=== PATIENT | female | born 1965 | race Caucasian/White ===

== ENCOUNTER 2017-12-11 13:14 | Emergency (ER) | payer MEDICARE, MEDICAID ==
[~2017-12-11 13:14] MED LIST changes: +CITA-139 PO; -CITA-145 PO; -NIC10R INH; -OXYGENHOME INH
--- NOTE | 2017-12-11 13:18 | ER Report ---
History and Physical Time Seen By MD: 13:17 HPI/ROS CHIEF COMPLAINT: Altered mental status HISTORY OF PRESENT ILLNESS: This is a 52-year-old female who presents to the emergency department via EMS for altered mental status. According to EMS the patient had a friend who has been checking on her today at around 12:00 she checked on her and noted that she was in and out of consciousness and not acting quite appropriate and was complaining of esophageal, chest and abdominal pain. Upon arrival EMS stated that she was on a mattress that was on the ground she was moving around not sitting still, the patient does drink alcohol daily however she has not had anything to drink today. EMS did give her 5mg of Valium IV and 4 mg IV Zofran. She has had hematemesis unsure how many episodes. Patient arrives groaning and grunting. Patient also states that she was trying to hurt herself by drinking last night however she states she was "not trying to kill herself". She is alert when prompted, responsive and answering questions. Patient has a very strong odor of EtOH. Patient does usually drink 1 pint of vodka daily, she denies drugs. Patient denies rashes, headaches, visual changes or urinary concerns. REVIEW OF SYSTEMS: Constitutional: No fever, no chills. Eyes: No discharge. ENT: No sore throat. Cardiovascular: As above. Respiratory: As above. Gastrointestinal: As above. Genitourinary: No hematuria. Musculoskeletal: No back pain. Skin: No rashes. Neurological: As above. Allergies: Coded Allergies: tomato (Verified Allergy, Intermediate, Rash, 12/11/17) Home Meds Discontinued Scripts Tramadol Hcl (TRAMADOL HCL) 50 Mg Tablet, 1 TAB PO Q6H Y for PAIN, #15 MG TAKE ONE TO TWO TABLETS BY MOUTH EVERY FOUR TO SIX HOURS NEEDED Prov:RL JURADO DO 07/14/17 Cephalexin 500 Mg Tab (KEFLEX 500 MG TAB) 500 Mg Tablet, 500 MG PO TID for infection, #20 TAB Prov:RL JURADO DO 07/14/17 Past Medical/Surgical History Patient has a past medical and surgical history of head injuries, wears glasses , alcohol abuse, suicide attempt, cholecystectomy, hysterectomy. Reviewed Nurses Notes: Yes Smoking Status: Current: Every Day Smoker Hx Substance Use Disorder: No Hx Alcohol Use: Yes (occ, 1 PINT WEEKLY) Constitutional Vital Sign - Last 24 Hours 12/11/17 12/11/17 12/11/17 12/11/17 13:16 13:17 13:30 13:32 Temp 98.8 Pulse 101 Resp 22 B/P (MAP) 112/94 112/94 (100) 105/81 (89) Pulse Ox 99 O2 Delivery Non-Rebreather O2 Flow Rate 10.0 12/11/17 12/11/17 12/11/17 12/11/17 13:44 13:45 14:00 14:14 Pulse 92 Resp 23 31 B/P (MAP) 110/85 (93) 110/87 (95) Pulse Ox 98 12/11/17 12/11/17 12/11/17 12/11/17 14:15 14:30 15:00 15:05 Pulse 81 Resp 15 B/P (MAP) 111/79 (90) 118/81 (93) 96/67 (77) Pulse Ox 98 12/11/17 12/11/17 12/11/17 12/11/17 15:15 15:30 15:35 15:45 Pulse 82 B/P (MAP) 86/58 (67) 97/69 (78) 116/84 (95) 12/11/17 12/11/17 12/11/17 16:04 16:05 16:15 Pulse 85 Resp 20 B/P (MAP) 121/80 (94) 120/93 (102) Pulse Ox 100 Intake and Output 12/11/17 12/11/17 12/12/17 15:00 23:00 07:00 Intake Total 1000 ml 1015.2 ml Balance 1000 ml 1015.2 ml Physical Exam General Appearance: The patient is alert when prompted, has no immediate need for airway protection and no signs of toxicity. Eyes: Pupils equal and round no pallor or injection. Pupils proximal 0.4 mm, sluggish to respond. ENT, Mouth: Mucous membranes are dry. Respiratory: There are no retractions, lungs are clear to auscultation. Cardiovascular: Regular rate and rhythm, no murmur, clicks or rubs. Gastrointestinal: Slightly rounded abdomen, soft and non tender, no masses, bowel sounds normal. No bruits. Neurological: GCS 14, alert and oriented 3, following most commands, alert to self, place and year but unable to give the date or the time of day. Moving all extremities. No focal neuro deficits. Cranial nerves II through XII intact. Lifting lower and upper extremities off the gurney. Skin: Warm and dry, no rashes or bruising. Musculoskeletal: Neck is supple non tender. Extremities are nontender, nonswollen and have full range of motion. DIFFERENTIAL DIAGNOSIS: After history and physical exam differential diagnosis was considered for altered mental status including but not limited to hypoglycemia, infectious process, electrolyte abnormality, head injury and intoxicants. Medical Decision Making Data Points Result Diagram: 12/11/17 1305 12/11/17 1305 Laboratory Hematology Test 12/11/17 00:00 12/11/17 13:05 Urine Color Yellow Urine Clarity Slightly-cloudy Urine pH 5.0 pH (4.8-9.5) Urine Specific [place] 1.029 Urine Protein Negative mg/dL (NEGATIVE) Urine Glucose (UA) Negative mg/dL (NEGATIVE) Urine Ketones Negative mg/dL (NEGATIVE) Urine Blood Negative (NEGATIVE) Urine Nitrite Positive (NEGATIVE) Urine Bilirubin Negative (NEGATIVE) Urine Urobilinogen Negative mg/dL (0.2-1.9) Urine Leukocyte Esterase Negative (NEGATIVE) Urine RBC None /HPF (0-2/HPF) Urine WBC 2 /HPF (0-5/HPF) Urine Squamous Epithelial Cells Many /LPF (</=FEW) Urine Bacteria Negative /HPF (NONE-FEW) Urine Mucus None /HPF (NONE-FEW) Urine HCG, Qualitative Negative (NEGATIVE) Urine Opiates Screen Negative Urine Barbiturates Screen Negative Ur Tricyclic Antidepressants Screen Negative Urine Phencyclidine Screen Negative Urine Amphetamines Screen Negative Urine Benzodiazepines Screen Negative Urine Cocaine Screen Negative Urine Cannabinoids Screen Negative Red Blood Count 4.50 M/uL (4.17-5.56) Mean Corpuscular Volume 100.4 fL (80.0-96.0) Mean Corpuscular Hemoglobin 35.2 pg (26.0-33.0) Mean Corpuscular Hemoglobin Concent 35.0 g/dL (32.0-36.0) Red Cell Distribution Width 15.1 % (11.5-14.5) Mean Platelet Volume 6.9 fL (7.2-11.1) Neutrophils (%) (Auto) 45.6 % (39.4-72.5) Lymphocytes (%) (Auto) 43.3 % (17.6-49.6) Monocytes (%) (Auto) 7.6 % (4.1-12.4) Eosinophils (%) (Auto) 0.6 % (0.4-6.7) Basophils (%) (Auto) 2.9 % (0.3-1.4) Nucleated RBC Relative Count (auto) 0.0 /100WBC Neutrophils # (Auto) 3.9 K/uL (2.0-7.4) Lymphocytes # (Auto) 3.7 K/uL (1.3-3.6) Monocytes # (Auto) 0.7 K/uL (0.3-1.0) Eosinophils # (Auto) 0.0 K/uL (0.0-0.5) Basophils # (Auto) 0.2 K/uL (0.0-0.1) Nucleated RBC Absolute Count (auto) 0.00 K/uL Sodium Level 139 mmol/L (137-145) Potassium Level 4.1 mmol/L (3.5-5.0) Chloride Level 98 mmol/L (98-107) Carbon Dioxide Level 23 mmol/L (22-31) Blood Urea Nitrogen 7 mg/dl (7-18) Creatinine 0.50 mg/dl (0.52-1.04) Glomerular Filtration Rate Calc > 60.0 Random Glucose 106 mg/dl (75-110) Calcium Level 10.8 mg/dl (8.4-10.2) Magnesium Level 1.9 mg/dl (1.7-2.2) Total Bilirubin 0.4 mg/dl (0.2-1.3) Aspartate Amino Transf (AST/SGOT) 201 U/L (0-35) Alanine Aminotransferase (ALT/SGPT) 121 U/L (0-56) Alkaline Phosphatase 176 U/L (0-126) Ammonia < 9 UMOL/L (9-33) Troponin I < 0.012 ng/ml Total Protein 7.4 gm/dl (6.3-8.2) Albumin 4.2 g/dl (3.5-5.0) Thyroid Stimulating Hormone (TSH) 1.75 uIU/ml (0.46-4.68) Human Chorionic Gonadotropin, Qual Negative (NEGATIVE) Salicylates Level 22 mg/L Salicylate Last Dose Date unk Acetaminophen Level < 10 ug/ml Serum Alcohol 303 mg/dl Chemistry Test 12/11/17 00:00 12/11/17 13:05 Urine Color Yellow Urine Clarity Slightly-cloudy Urine pH 5.0 pH (4.8-9.5) Urine Specific [place] 1.029 Urine Protein Negative mg/dL (NEGATIVE) Urine Glucose (UA) Negative mg/dL (NEGATIVE) Urine Ketones Negative mg/dL (NEGATIVE) Urine Blood Negative (NEGATIVE) Urine Nitrite Positive (NEGATIVE) Urine Bilirubin Negative (NEGATIVE) Urine Urobilinogen Negative mg/dL (0.2-1.9) Urine Leukocyte Esterase Negative (NEGATIVE) Urine RBC None /HPF (0-2/HPF) Urine WBC 2 /HPF (0-5/HPF) Urine Squamous Epithelial Cells Many /LPF (</=FEW) Urine Bacteria Negative /HPF (NONE-FEW) Urine Mucus None /HPF (NONE-FEW) Urine HCG, Qualitative Negative (NEGATIVE) Urine Opiates Screen Negative Urine Barbiturates Screen Negative Ur Tricyclic Antidepressants Screen Negative Urine Phencyclidine Screen Negative Urine Amphetamines Screen Negative Urine Benzodiazepines Screen Negative Urine Cocaine Screen Negative Urine Cannabinoids Screen Negative White Blood Count 8.5 k/uL (4.5-11.0) Red Blood Count 4.50 M/uL (4.17-5.56) Hemoglobin 15.8 g/dL (12.0-16.0) Hematocrit 45.2 % (34.0-47.0) Mean Corpuscular Volume 100.4 fL (80.0-96.0) Mean Corpuscular Hemoglobin 35.2 pg (26.0-33.0) Mean Corpuscular Hemoglobin Concent 35.0 g/dL (32.0-36.0) Red Cell Distribution Width 15.1 % (11.5-14.5) Platelet Count 481 K/uL (150-450) Mean Platelet Volume 6.9 fL (7.2-11.1) Neutrophils (%) (Auto) 45.6 % (39.4-72.5) Lymphocytes (%) (Auto) 43.3 % (17.6-49.6) Monocytes (%) (Auto) 7.6 % (4.1-12.4) Eosinophils (%) (Auto) 0.6 % (0.4-6.7) Basophils (%) (Auto) 2.9 % (0.3-1.4) Nucleated RBC Relative Count (auto) 0.0 /100WBC Neutrophils # (Auto) 3.9 K/uL (2.0-7.4) Lymphocytes # (Auto) 3.7 K/uL (1.3-3.6) Monocytes # (Auto) 0.7 K/uL (0.3-1.0) Eosinophils # (Auto) 0.0 K/uL (0.0-0.5) Basophils # (Auto) 0.2 K/uL (0.0-0.1) Nucleated RBC Absolute Count (auto) 0.00 K/uL Glomerular Filtration Rate Calc > 60.0 Calcium Level 10.8 mg/dl (8.4-10.2) Magnesium Level 1.9 mg/dl (1.7-2.2) Total Bilirubin 0.4 mg/dl (0.2-1.3) Aspartate Amino Transf (AST/SGOT) 201 U/L (0-35) Alanine Aminotransferase (ALT/SGPT) 121 U/L (0-56) Alkaline Phosphatase 176 U/L (0-126) Ammonia < 9 UMOL/L (9-33) Troponin I < 0.012 ng/ml Total Protein 7.4 gm/dl (6.3-8.2) Albumin 4.2 g/dl (3.5-5.0) Thyroid Stimulating Hormone (TSH) 1.75 uIU/ml (0.46-4.68) Human Chorionic Gonadotropin, Qual Negative (NEGATIVE) Salicylates Level 22 mg/L Salicylate Last Dose Date unk Acetaminophen Level < 10 ug/ml Serum Alcohol 303 mg/dl Toxicology Test 12/11/17 00:00 12/11/17 13:05 Urine Opiates Screen Negative Urine Barbiturates Screen Negative Ur Tricyclic Antidepressants Screen Negative Urine Phencyclidine Screen Negative Urine Amphetamines Screen Negative Urine Benzodiazepines Screen Negative Urine Cocaine Screen Negative Urine Cannabinoids Screen Negative Salicylates Level 22 mg/L Salicylate Last Dose Date unk Acetaminophen Level < 10 ug/ml Serum Alcohol 303 mg/dl Urinalysis Test 12/11/17 00:00 Urine Color Yellow Urine Clarity Slightly-cloudy Urine pH 5.0 pH (4.8-9.5) Urine Specific [place] 1.029 Urine Protein Negative mg/dL (NEGATIVE) Urine Glucose (UA) Negative mg/dL (NEGATIVE) Urine Ketones Negative mg/dL (NEGATIVE) Urine Blood Negative (NEGATIVE) Urine Nitrite Positive (NEGATIVE) Urine Bilirubin Negative (NEGATIVE) Urine Urobilinogen Negative mg/dL (0.2-1.9) Urine Leukocyte Esterase Negative (NEGATIVE) Urine RBC None /HPF (0-2/HPF) Urine WBC 2 /HPF (0-5/HPF) Urine Squamous Epithelial Cells Many /LPF (</=FEW) Urine Bacteria Negative /HPF (NONE-FEW) Urine Mucus None /HPF (NONE-FEW) Urine HCG, Qualitative Negative (NEGATIVE) EKG/Imaging EKG Interpretation 12 lead EKG: Rhythm: Sinus rhythm, 95 bpm. [place]: normal QRS: normal ST segments: No ST depression or elevation identified. Imaging Location: [facility] Patient: Agnieszka Nieves : 1965 Visit/Account:[id number] Date of Sevice: 12/11/2017 CHEST/AB/PELV W/CONTRAST HISTORY: hx etoh, altered loc, hematemesis ADDITIONAL HISTORY: None. TECHNIQUE: Following administration of IV contrast axial images acquired through the chest abdomen and pelvis during the portal venous phase. Coronal and sagittal reformatting was also performed. Dose Lowering Technique One of the following dose optimization techniques was utilized in the performance of this exam: Automated exposure control; adjustment of the mA and/ or kV according to the patient's size; or use of an iterative reconstruction technique. Specific details can be referenced in the facility's radiology CT exam operational policy. CONTRAST: 75 mL Isovue-370 COMPARISON: None. FINDINGS: CHEST: Lungs/Pleura: There is a small wedge-shaped area of airspace consolidation in the medial right middle lobe with small air bronchogram. There is linear stranding in the lower lobes consistent with scarring versus atelectasis Mediastinum/lymph nodes: Negative. Heart/vessels: Negative. Bones/soft tissues: No aggressive appearing bone lesions are seen ABDOMEN AND PELVIS: Hepatobiliary: Hepatomegaly with diffuse hepatic steatosis. Postsurgical changes from a cholecystectomy. Spleen: Negative. Pancreas: Negative. Adrenals: Negative. Kidneys ureters and bladder : Subcentimeter hypodensity midpole of the left kidney may represent a cyst although is too small to characterize. Bladder is moderately distended Genitalia: Hysterectomy GI: Moderate amount of fecal material seen in the colon which can be seen with constipation Vessels/spaces/nodes: Mild vascular calcifications Bones/soft tissues: Small sclerotic densities in the sacrum and iliac bones may represent bone islands . Moderate spondylotic changes lower lumbar spine Additional findings: None pertinent. IMPRESSION: Small wedge-shaped area of airspace consolidation medial right middle lobe with small air bronchograms may represent an area of atelectasis or developing infiltrate Hepatomegaly with diffuse hepatic steatosis Postsurgical changes from a cholecystectomy and hysterectomy Moderate amount of fecal material in colon which can be seen with constipation Small sclerotic densities in the sacrum and iliac bones may represent bone islands. Report Dictated By: Zully Tobin MD at 12/11/2017 2:56 PM Report E-Signed By: Zully Tobin MD at 12/11/2017 3:05 PM WSN:[email or web address] ED Course/Re-evaluation Clinical Indication for ER IV: Hydration, IV Access ED Course The patient was admitted to a room via EMS. A history and physical as obtained. Differential diagnoses were considered. IV was started. A CBC, CMP, psych panel was obtained. Lab studies showing MCV 100.4, MCH 35.2, chemistry showing AST 201 , ALT 121, alkaline phosphatase 176 negative urine tox screen, serum alcohol 303 , negative UA. Chest abdomen pelvis CT showing airspace consolidation on the right middle lobe which could represent atelectasis or developing infiltrate, hepatomegaly. I did review these results with the patient she is now awake and more alert and responsive I did tell her that I was concerned she was going to potentially hurt herself and she needed to be admitted to the hospital to either the behavioral health unit or the medical surgical unit, she was in agreement. I did speak with Dr. Pierson from the behavioral health unit, she accepted the patient into her care and the patient will be admitted to behavioral health unit for alcohol intoxication, detox and concerns for self harm. I did also pass along this the CT did show a possible infiltrate developing in the right middle lobe however at this time I don't think that this is a concern as the patient is afebrile, not tachycardic normotensive and lung sounds are clear. The patient was in agreement with this plan care and admitted to the behavioral health unit. The behavioral health unit does have oxygen available should she need it as discussed with Dr. Pierson. Decision to Disposition Date: December 11, 2017 Decision to Disposition Time: 16:00 Depart Departure Latest Vital Signs Vital Signs Date Time Temp Pulse Resp B/P (MAP) Pulse Ox O2 Delivery O2 Flow Rate FiO2 12/11/17 16:15 120/93 (102) 12/11/17 16:05 85 20 100 12/11/17 13:32 10.0 12/11/17 13:16 98.8 Non-Rebreather Impression: Primary Impression: Alcohol abuse Condition: Improved Disposition: XFER TO [facility] Referrals: DHRUV ZHU (PCP) New Scripts No Active Prescriptions or Reported Meds KATLIN VARNERP-BC December 11, 2017 13:17
[2017-12-11] MEDS ORDERED: THIAMINE HCL(*) 200 MG/2 ML IN 100 MG, FOLIC ACID(*) 50 MG/10 ML INJ 1 MG, MULTIVITAMIN... IV ONE (13:24)
[2017-12-11] MEDS ORDERED: EMS NS 0.9%(*) 1000 ML BAG 1,000 ML IV ONE (13:25)
[2017-12-11 13:37] LABS: PLATELET COUNT, AUTOMATED 481 K/uL (150-450)
--- NOTE | 2017-12-11 13:38 | EKG ---
FACILITY: [facility] PATIENT NAME: GLORIA FIGUEROA : [id number] MR: [id number] V: [id number] EXAM DATE: ORDERING PHYSICIAN: KATLIN VARNER TECHNOLOGIST: MOHAMUD Test Reason : ETOH Blood Pressure : / mmHG Vent. Rate : 095 BPM Atrial Rate : 095 BPM P-R Int : 134 ms QRS Dur : 078 ms QT Int : 354 ms P-R-T Axes : 073 084 067 degrees QTc Int : 444 ms Normal sinus rhythm Normal ECG When compared with ECG of 06-FEB-2017 12:09, No significant change was found Referred By: NEERU Confirmed By:
[2017-12-11] MEDS ORDERED: ONDANSETRON 4 MG/2 ML VIAL IVP ONE (13:40)
[2017-12-11] MEDS ORDERED: IOPAMIDOL 76% 75 ML INFUS BTL 75 ML ONE (14:20)
--- NOTE | 2017-12-11 15:10 | RADIOLOGY IMAGING REPORT ---
FACILITY: [facility] PATIENT NAME: Agnieszka Nieves : 1965 MR: [id number] V: [id number] EXAM DATE: ORDERING PHYSICIAN: KATLIN VARNER TECHNOLOGIST: Location: [facility] Patient: Agnieszka Nieves : 1965 Visit/Account:[id number] Date of Sevice: 12/11/2017 CHEST/AB/PELV W/CONTRAST HISTORY: hx etoh, altered loc, hematemesis ADDITIONAL HISTORY: None. TECHNIQUE: Following administration of IV contrast axial images acquired through the chest abdomen a nd pelvis during the portal venous phase. Coronal and sagittal reformatting was also performed. Dose Lowering Technique One of the following dose optimization techniques was utilized in the performance of this exam: Autom ated exposure control; adjustment of the mA and/or kV according to the patient's size; or use of an i terative reconstruction technique. Specific details can be referenced in the facility's radiology C T exam operational policy. CONTRAST: 75 mL Isovue-370 COMPARISON: None. FINDINGS: CHEST: Lungs/Pleura: There is a small wedge-shaped area of airspace consolidation in the medial right middl e lobe with small air bronchogram. There is linear stranding in the lower lobes consistent with scar ring versus atelectasis Mediastinum/lymph nodes: Negative. Heart/vessels: Negative. Bones/soft tissues: No aggressive appearing bone lesions are seen ABDOMEN AND PELVIS: Hepatobiliary: Hepatomegaly with diffuse hepatic steatosis. Postsurgical changes from a cholecystec martin. Spleen: Negative. Pancreas: Negative. Adrenals: Negative. Kidneys ureters and bladder : Subcentimeter hypodensity midpole of the left kidney may represent a cy st although is too small to characterize. Bladder is moderately distended Genitalia: Hysterectomy GI: Moderate amount of fecal material seen in the colon which can be seen with constipation Vessels/spaces/nodes: Mild vascular calcifications Bones/soft tissues: Small sclerotic densities in the sacrum and iliac bones may represent bone islan ds . Moderate spondylotic changes lower lumbar spine Additional findings: None pertinent. IMPRESSION: Small wedge-shaped area of airspace consolidation medial right middle lobe with small air bronchogram s may represent an area of atelectasis or developing infiltrate Hepatomegaly with diffuse hepatic steatosis Postsurgical changes from a cholecystectomy and hysterectomy Moderate amount of fecal material in colon which can be seen with constipation Small sclerotic densities in the sacrum and iliac bones may represent bone islands. Report Dictated By: Zully Tobin MD at 12/11/2017 2:56 PM Report E-Signed By: Zully Tobin MD at 12/11/2017 3:05 PM WSN:[email or web address]
[2017-12-11 16:15] VITALS: BP 120/93
[2017-12-12] MEDS ORDERED: CEPH500T7 PO (11:02)
[2017-12-12] MEDS ORDERED: OXYGENHOME INH (11:02)
[2017-12-12] MEDS ORDERED: NIC10R INH (11:05)
== END 2017-12-11 16:30 ==
LOC: ER 13:22
DX: F10.129 Alcohol abuse with intoxication, unspecified (principal); Y90.8 Blood alcohol level of 240 mg/100 ml or more; R16.0 Hepatomegaly, not elsewhere classified; K76.0 Fatty (change of) liver, not elsewhere classified; R91.8 Other nonspecific abnormal finding of lung field
CPT/HCPCS: 71260; 74177; 80305; 81001; 81025; 82140; 83735; 84443; 84484; 84703; 85025; 93005; 96361; 96374; 99285; G0480; J2405; J3411; J3475; J7030; Q9967; 80320; 80329; 82040; 82247; 82310; 82374; 82435; 82565; 82947; 84075; 84132; 84155; 84295; 84450; 84460; 84520

== ENCOUNTER 2017-12-11 16:15 | Inpatient (IN) | payer MEDICARE, MEDICAID ==
[~2017-12-11] VITALS: Ht 149.9 cm; Wt 52.2 kg
[~2017-12-11 16:15] MED LIST changes: -CITA-139 PO; +CITA-145 PO
[2017-12-11] MEDS ORDERED: MAG HYD/AL HYD/SIMETH 30ML UDC PO PRN (17:35)
[2017-12-11] MEDS ORDERED: NICOTINE CARTRIDGE 1 EA PO PRN (20:55)
[2017-12-11] MEDS ORDERED: NICOTINE INH SYSTEM 10 MG/INH INH PRN (20:55)
[2017-12-11] MEDS: DIAZEPAM 20 MG PER CIWA PROTOCOL PO PRN ×3 (20:56→23:08)
[2017-12-11] MEDS ORDERED: ALBUTEROL SULFATE 90 MCG/ACT 8.5 GM HNH INH PRN (21:55)
[2017-12-11] MEDS: CEPHALEXIN MONO 500 MG CAP PO SCH (23:08)
[2017-12-12 01:00] VITALS: BP 125/74
[2017-12-12] MEDS: DIAZEPAM 20 MG PER CIWA PROTOCOL PO PRN (01:10)
[2017-12-12 03:46] VITALS: BP 111/79
[2017-12-12 05:36] VITALS: BP 120/84
[2017-12-12 08:28] VITALS: BP 119/76
[2017-12-12] MEDS ORDERED: MULTIVITAMINS PO SCH (09:00)
[2017-12-12] MEDS ORDERED: FOLIC ACID 1 MG TAB PO SCH (09:00)
[2017-12-12] MEDS ORDERED: THIAMINE HCL 100 MG TAB PO SCH (09:00)
[2017-12-12] MEDS: CEPHALEXIN MONO 500 MG CAP PO SCH (10:41)
[2017-12-12] MEDS ORDERED: CEPH500T7 PO (11:02)
[2017-12-12] MEDS ORDERED: OXYGENHOME INH (11:02)
[2017-12-12] MEDS ORDERED: NIC10R INH (11:05)
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
--- NOTE | 2017-12-31 08:39 | BHS Discharge Summary ---
BHS Discharge Summary Mcih-bi-Brjo Encounter Date: December 12, 2017 Ohnr-zo-Bike Encounter Time: 08:30 Reason-Hosp/Final Diag (DSM-V): (1) Alcohol use disorder, severe, dependence Hospital Course & Plan: SEE H & P, pt signed out AMA Physical Exam Latest Vital Signs see H and P Mental Status Exam General Appearance: Casual, Good Eye Contact, Cooperative, Polite, Good Interaction Speech: Clear, Spontaneous, Normal Rate, Normal Rhythm, Normal Volume, Normal Tone Mood: Euthymic Affect: Calm, Neutral Thought Process: Organized, Logical, Goal Directed Thought Content: No Suicidal Ideation, No Homicidal Ideation, No Delusions, No Auditory Halllucinations, No Visual Hallucinations, No Thought Broadcasting, No Ideas of Reference, No Obsessions, No Compulsions, No Other Sensorium: Clear Cognition: Alert & Oriented-Person, Alert & Oriented-Place, Alert & Oriented- Time, Ihres-Gjaxmpnt-Rslgyzykq Memory: Immediate, Recent, Remote Intelligence: Average Insight Judgment: Fair Departure Condition: Improved (no longer intoxicated) Discharge to: Home Discharge Instructions Home Meds Unable to Obtain Active Prescriptions or Reported Meds Condition with "AMA" Discharge Pt was alert, stable, understood risks of AMA discharge, cousin accompanying her , pt given prescription for Keflex. BRITTANY MORENO MD December 31, 2017 08:38
== END 2017-12-12 11:55 | disposition home or self-care (01) | DRG 897 ==
LOC: BHS 16:15
PROVIDERS: ADMIT Psychiatry & Neurology Psychiatry; ATTEND Psychiatry & Neurology Psychiatry
DX: F10.220 Alcohol dependence with intoxication, uncomplicated (principal); Y90.8 Blood alcohol level of 240 mg/100 ml or more; Z53.29 Procedure and treatment not carried out because of patient's decision for other reasons; Z62.810 Personal history of physical and sexual abuse in childhood; Z91.410 Personal history of adult physical and sexual abuse; Z81.1 Family history of alcohol abuse and dependence; Z85.41 Personal history of malignant neoplasm of cervix uteri; Z90.710 Acquired absence of both cervix and uterus
CPT/HCPCS: 71260; 74177; 80305; 80320; 80329; 81001; 81025; 82040; 82140; 82247; 82310; 82374; 82435; 82565; 82947; 83735; 84075; 84132; 84155; 84295; 84443; 84450; 84460; 84484; 84520; 84703; 85025; 93005; 94640; 96361; 96374; 99285; J2405; J3411; J3475; J7030; Q9967

== ENCOUNTER → 2017-12-11 | Outpatient (CLI) | payer MEDICARE, MEDICAID ==
[~2017-12-11] MED LIST: ABILIF5PT PO; ALBU8.5H IH; CEPH500T7 PO; CITA-145 PO; DULO60CA56 PO; METR-1 PO; NIC10R INH; ONDA4TAB PO; OXYGENHOME INH; TRAM-420 PO
== END ==
LOC: AMB 12:51
PROVIDERS: ATTEND Nurse Practitioner
DX: R41.82 Altered mental status, unspecified (principal); R55 Syncope and collapse; R11.10 Vomiting, unspecified; F10.20 Alcohol dependence, uncomplicated; R07.9 Chest pain, unspecified
CPT/HCPCS: A0425; A0433

== ENCOUNTER 2017-12-17 17:18 | Emergency (ER) | payer MEDICARE, MEDICAID ==
[2017-12-17] MEDS ORDERED: DIPHTH/TETANUS/ACEL. PERTUSSIS IM ONE (17:45)
[2017-12-17 18:00] LABS: PLATELET COUNT, AUTOMATED 335 K/uL (150-450)
[2017-12-17 18:01] LABS: INR 0.93
--- NOTE | 2017-12-17 18:15 | RADIOLOGY IMAGING REPORT ---
FACILITY: [facility] - [place] PATIENT NAME: Agnieszka Nieves : 1965 MR: [id number] V: [id number] EXAM DATE: ORDERING PHYSICIAN: GERARD JIMENEZ TECHNOLOGIST: Location: [facility] [place] Patient: Agnieszak Nieves : 1965 Visit/Account:[id number] Date of Sevice: 12/17/2017 CT Head without contrast and CT Cervical spine: Indication: Fall. Altered mental status. Intoxicated. Comparison: 02/06/2017. Technique: CT head: Axial CT images were obtained through the brain from the skull base to the verte x without administration of IV contrast. Reformatted coronal and sagittal images were also obtained. Technique: CT cervical spine: Axial CT imaging of the cervical spine was performed. 2-D sagittal and coronal CT reformats were also obtained. One of the following dose optimization techniques was utilized in the performance of this exam: Autom ated exposure control; adjustment of the mA and/or kV according to the patient's size; or use of an i terative reconstruction technique. Specific details can be referenced in the facility's radiology C T exam operational policy. FINDINGS: CT head: No intracranial bleed, midline shift, mass effect, extra-axial fluid collection or hydrocephalus. No abnormal density. Grimaldo/white matter differentiation appears normal. Mild bilateral internal carotid a rtery calcifications. Bony structures show no fractures or lesions. Previous right-sided craniectomy without sequelae. Sinuses and mastoids visualized are clear. CT cervical spine: The vertebral bodies are aligned. No fracture or facet dislocation. No bony lesions or degenerative c hanges. The endplates are maintained. No obvious disc herniation. Prevertebral soft tissues surroundi ng soft tissues are unremarkable. Lung apices are clear. IMPRESSION: 1. No acute intracranial abnormality. 2. No acute osseous or acute alignment abnormality of the cervical spine. Report Dictated By: Michael Fairbanks at 12/17/2017 6:03 PM Report E-Signed By: Michael Fairbanks at 12/17/2017 6:11 PM WSN:[id number]
--- NOTE | 2017-12-17 18:16 | RADIOLOGY IMAGING REPORT ---
FACILITY: [facility] PATIENT NAME: Agnieszka Nieves : 1965 MR: [id number] V: [id number] EXAM DATE: ORDERING PHYSICIAN: GERARD JIMENEZ TECHNOLOGIST: Location: [facility] [place] Patient: Agnieszka Nieves : 1965 Visit/Account:[id number] Date of Sevice: 12/17/2017 CT Head without contrast and CT Cervical spine: Indication: Fall. Altered mental status. Intoxicated. Comparison: 02/06/2017. Technique: CT head: Axial CT images were obtained through the brain from the skull base to the verte x without administration of IV contrast. Reformatted coronal and sagittal images were also obtained. Technique: CT cervical spine: Axial CT imaging of the cervical spine was performed. 2-D sagittal and coronal CT reformats were also obtained. One of the following dose optimization techniques was utilized in the performance of this exam: Autom ated exposure control; adjustment of the mA and/or kV according to the patient's size; or use of an i terative reconstruction technique. Specific details can be referenced in the facility's radiology C T exam operational policy. FINDINGS: CT head: No intracranial bleed, midline shift, mass effect, extra-axial fluid collection or hydrocephalus. No abnormal density. Grimaldo/white matter differentiation appears normal. Mild bilateral internal carotid a rtery calcifications. Bony structures show no fractures or lesions. Previous right-sided craniectomy without sequelae. Sinuses and mastoids visualized are clear. CT cervical spine: The vertebral bodies are aligned. No fracture or facet dislocation. No bony lesions or degenerative c hanges. The endplates are maintained. No obvious disc herniation. Prevertebral soft tissues surroundi ng soft tissues are unremarkable. Lung apices are clear. IMPRESSION: 1. No acute intracranial abnormality. 2. No acute osseous or acute alignment abnormality of the cervical spine. Report Dictated By: Michael Fairbanks at 12/17/2017 6:03 PM Report E-Signed By: Michael Fairbanks at 12/17/2017 6:11 PM WSN:[id number]
[2017-12-17] MEDS ORDERED: NS(*) 0.9% 1000 ML BAG 1,000 ML IV ONE (18:35)
--- NOTE | 2017-12-17 18:35 | EKG ---
[place] [facility] [place] GLORIA FIGUEROA : [id number] MR: [id number] V: [id number] EXAM DATE: ORDERING PHYSICIAN: GERARD JIMENEZ TECHNOLOGIST: MELINDA Walters Reason : FALL Blood Pressure : / mmHG Vent. Rate : 087 BPM Atrial Rate : 087 BPM P-R Int : 138 ms QRS Dur : 076 ms QT Int : 382 ms P-R-T Axes : 060 072 062 degrees QTc Int : 459 ms Normal sinus rhythm Normal ECG When compared with ECG of 11-DEC-2017 13:29, No significant change was found Confirmed by JERAD WRIGHT ([id number]) on 12/18/2017 1:03:20 PM Referred By: BARBARA Confirmed By:JERAD WRIGHT
[2017-12-17] MEDS ORDERED: IOPAMIDOL 76% 75 ML INFUS BTL 75 ML ONE (19:35)
--- NOTE | 2017-12-17 20:10 | RADIOLOGY IMAGING REPORT ---
FACILITY: [facility] PATIENT NAME: Agnieszka Nieves : 1965 MR: [id number] V: [id number] EXAM DATE: ORDERING PHYSICIAN: AR SIDDIQI TECHNOLOGIST: Location: [facility] Patient: Agnieszka Nieves : 1965 Visit/Account:[id number] Date of Sevice: 12/17/2017 CHEST/AB/PELV W/CONTRAST History: 52-year-old female fell on face. Intoxication noted. Change in mental status. Technique: Thin axial CT images were obtained through the chest, abdomen and pelvis with the injectio n of intravenous contrast. Coronal and sagittal reformations were then created. Contrast: Isovue-370 75 mls. One of the following dose optimization techniques was utilized in the performance of this exam: Autom ated exposure control; adjustment of the mA and/or kV according to the patient's size; or use of an i terative reconstruction technique. Specific details can be referenced in the facility's radiology C T exam operational policy. Comparison: CT scan chest, abdomen and pelvis December. Findings: Chest: Lower neck: There are no findings of supraclavicular lymphadenopathy. Thyroid gland/mediastinum/hilum/lymph nodes:The thyroid gland is normal and there is no mediastinal o r hilar lymphadenopathy. Heart and pericardium: Heart size is normal. There is no pericardial effusion. Lungs/pleura: There are diffuse findings of central lobar emphysema. Correlation for prior history of smoking recommended. Bones/soft tissues: There are no findings of a rib or thoracic vertebral body fracture. There is no c lavicular or humeral head fracture. There is no scapular fracture. Abdomen and pelvis: Hepatobiliary: Diffuse decreased density of the liver is consistent with diffuse fatty infiltration o r hepatic steatosis. Surgical clips in the gallbladder fossa are related to prior cholecystectomy. Spleen: There is no splenic fracture.. Adrenals: Negative. Pancreas: Negative. Kidneys/genitourinary: Negative. Bowel/peritoneum/mesentery: There are no dilated loops of large or small bowel to suggest ileus or ob struction. A normal appendix is identified. There is no diverticulosis or diverticulitis. Pelvic/genitourinary:The bladder is distended but otherwise unremarkable. There is no inguinal hernia . The uterus and ovaries are not seen. Correlation prior gynecological surgical history is recommende d. Vessels: Negative. Lymph node: Negative. Body wall/bones: No finding of a fracture. IMPRESSION: 1. There are findings of central lobar emphysema throughout the chest. There is parenchymal scarring in the medial segment of the right middle lobe. This is stable since the prior exam. There is no rib fracture, sternal fracture or pleural effusion to suggest injury related to trauma. 2. In the abdomen there is hepatic steatosis. The gallbladder surgically absent. The bowel is unremar kable. 3. In the pelvis there is no fracture. Neither the uterus or ovaries are seen and correlation with pr ior surgical history is recommended. Report Dictated By: Edison Schwartz MD at 12/17/2017 7:56 PM Report E-Signed By: Edison Schwartz MD at 12/17/2017 8:04 PM WSN:[id number]
--- NOTE | 2017-12-17 20:10 | RADIOLOGY IMAGING REPORT ---
FACILITY: [facility] PATIENT NAME: Agnieszka Nieves : 1965 MR: [id number] V: [id number] EXAM DATE: ORDERING PHYSICIAN: AR SIDDIQI TECHNOLOGIST: Location: [facility] Patient: Agnieszka Nieves : 1965 Visit/Account:[id number] Date of Sevice: 12/17/2017 L-SPINE W CONTRAST HISTORY: seizure, fall, altered mental status COMPARISON STUDIES: Patient status post fall. Intoxication noted. Evaluate for fracture. TECHNIQUE: Axial images were obtained from the thoraco-lumbar junction through the upper sacrum with out IV contrast administration. Coronal and sagittal reformatted images were obtained from the axial source data. One of the following dose optimization techniques was utilized in the performance of this exam: Autom ated exposure control; adjustment of the mA and/or kV according to the patient's size; or use of an i terative reconstruction technique. Specific details can be referenced in the facility's radiology C T exam operational policy. FINDINGS: Paravertebral soft tissues: Unremarkable. No findings of prior surgery or injury related to recent tr auma. Alignment: Lumbar spine is normal lordotic curvature. There is no spondylolisthesis or spondylolysis. Vertebral bodies: There is no vertebral body compression fracture. There is no sacral insufficiency f racture. Posterior elements: No findings of a posterior element fracture. No spondylolisthesis. Disc Spaces: Discogenic degenerative changes are noted at L5-S1 where there is a vacuum disc. Visualized retroperitoneal / abdominal structures: The aorta is calcified but there is no aneurysmal dilatation. There is no retroperitoneal hematoma. There is no transverse process fracture. IMPRESSION: 1. No findings of a fracture involving the lumbar spine or sacrum. 2. Discogenic degenerative changes in the lumbar spine are noted at L5-S1 where there is a vacuum dis c. Report Dictated By: Edison Schwartz MD at 12/17/2017 8:05 PM Report E-Signed By: Edison Schwartz MD at 12/17/2017 8:07 PM WSN:[id number]
--- NOTE | 2017-12-17 20:15 | RADIOLOGY IMAGING REPORT ---
FACILITY: [facility] PATIENT NAME: Agnieszka Nieves : 1965 MR: [id number] V: [id number] EXAM DATE: ORDERING PHYSICIAN: AR SIDDIQI TECHNOLOGIST: Location: [facility] Patient: Agnieszka Nieves : 1965 Visit/Account:[id number] Date of Sevice: 12/17/2017 T-SPINE W CONTRAST History: seizure, fall, altered mental status COMPARISON STUDIES: Patient with intoxication status post severe fall. Evaluate for fracture. TECHNIQUE: Axial images were obtained from the lower cervico-thoracic junction through the thoraco-l umbar junction without IV contrast administration. Coronal and sagittal reformatted images were obtai yusuf from the axial source data. Note that this thoracic spine series was a obtained as part of a reconstruction from original images obtained during a trauma study of the chest abdomen and pelvis. One of the following dose optimization techniques was utilized in the performance of this exam: Autom ated exposure control; adjustment of the mA and/or kV according to the patient's size; or use of an i terative reconstruction technique. Specific details can be referenced in the facility's radiology C T exam operational policy. FINDINGS: Paravertebral soft tissues: No findings of a soft tissue hematoma. Alignment: The thoracic spine has normal gentle kyphosis. Vertebral bodies: There is no thoracic vertebral body fracture. There is no rib fracture. Posterior elements: There is no posterior element fracture. Disc Spaces: Unremarkable. Minimal discogenic degenerative change. Visualized lung / mediastinum / abdomen: There are changes of central lobar emphysema throughout the lung otto. The thoracic aorta is unremarkable. There is fatty infiltration of the liver. IMPRESSION: 1. No findings of fracture involving the thoracic spine or ribs. 2. Prominent findings of central lobar emphysema throughout the lung otto. 3. Fatty infiltration of the liver. Report Dictated By: Edison Schwartz MD at 12/17/2017 8:07 PM Report E-Signed By: Edison Schwartz MD at 12/17/2017 8:11 PM WSN:[id number]
[2017-12-17 20:30] VITALS: BP 101/77
--- NOTE | 2017-12-18 10:36 | ER Report ---
History and Physical Time Seen By MD: 17:24 Hx. of Stated Complaint: FALL, SEIZURE, ETOH, WEAKNESS. (GERARD REAGAN MD) Time Seen By MD: 18:00 (AR SIDDIQI MD) HPI/ROS CHIEF COMPLAINT: Seizure, alcohol intoxication, altered mental status HISTORY OF PRESENT ILLNESS: This is a 52 year old female. She has been drinking heavily and has a history of chronic alcoholism. She had a seizure and fall with injury and bleeding around her mouth and nose. She is intoxicated at this time, with altered mental status, but is able to answer some simple questions for me. She responds yes to questions about pain, no matter where I ask about. She is oriented to self only, not to place or time or situation. Cervical spine precautions in place. CT scan of head and neck done on arrival prior to me seeing her. I was able to check her old records and review previous medical history. REVIEW OF SYSTEMS: Unable to obtain (AR SIDDIQI MD) Allergies: Coded Allergies: tomato (Verified Allergy, Intermediate, Rash, 12/11/17) Home Meds Discontinued Reported Medications Nicotine (NICOTROL) 10 Mg/Inh Ctr, 10 MG INH 12/12/17 Oxygen (OXYGEN) Inha, 2 L INH, L Oxygen @ 2 liters/NC titrate to pulse ox >90% 12/12/17 Cephalexin 500 Mg Tab (KEFLEX 500 MG TAB) 500 Mg Tablet, 500 MG PO TID, #30 TAB 12/12/17 Discontinued Scripts Tramadol Hcl (TRAMADOL HCL) 50 Mg Tablet, 1 TAB PO Q6H Y for PAIN, #15 MG TAKE ONE TO TWO TABLETS BY MOUTH EVERY FOUR TO SIX HOURS NEEDED Prov:RL JURADO DO 07/14/17 Cephalexin 500 Mg Tab (KEFLEX 500 MG TAB) 500 Mg Tablet, 500 MG PO TID for infection, #20 TAB Prov:RL JURADO DO 07/14/17 Unable To Obtain Past Medical: Unable to Obtain/Update (GERARD REAGAN MD) Reviewed Nurses Notes: Yes (AR SIDDIQI MD) Hx Smoking: Yes Smoking Status: Current: Every Day Smoker Exposure to Second Hand Smoke?: No Hx Substance Use Disorder: No Hx Alcohol Use: Yes (GERARD REAGAN MD) Constitutional Vital Sign - Last 24 Hours 5/15/18 12/17/17 12/17/17 12/17/17 17:19 17:19 17:48 18:06 Pulse 90 83 Resp 12 26 B/P (MAP) 125/96 109/94 (99) Pulse Ox 96 99 O2 Delivery Nasal Cannula O2 Flow Rate 3.0 12/17/17 12/17/17 12/17/17 12/17/17 18:18 18:30 18:33 18:48 Pulse 71 78 71 Resp 16 20 18 B/P (MAP) 94/67 (76) Pulse Ox 100 99 98 12/17/17 12/17/17 12/17/17 12/17/17 19:00 19:03 19:30 19:45 Pulse ??? 75 75 Resp 20 18 B/P (MAP) 111/90 (97) 108/82 (91) Pulse Ox 99 100 99 12/17/17 12/17/17 12/17/17 12/17/17 20:00 20:15 20:30 20:45 Pulse 75 79 88 Resp 14 15 16 22 B/P (MAP) 94/78 (83) 101/77 (85) Pulse Ox 100 100 97 84 ([facility] Physical Exam General Appearance: The patient is arousable to verbal and mild tactile stimulation. Seems oriented to self only. Not consistent with answers to questions at this time. Intoxicated and can smell alcohol. Eyes: Pupils are equal, round. Reactive to light. No pallor or icterus, has mild injection. Extraocular movements are intact. ENT: Mucous membranes are moist. Posterior oropharynx is normal. Normal nasal mucosa. Normal tympanic membranes and canals. Neck: Supple and non tender. No lymphadenopathy. Respiratory: Lungs are clear to auscultation. Cardiovascular: Regular rate and rhythm. No murmurs, gallops or rubs. Normal capillary refill. No edema. Gastrointestinal: Abdomen is soft and unable to detect significant tenderness at this time, but does complain about pain no matter where I palpate. Nondistended. Normal active bowel sounds. Neurological: Oriented to self only. Moving all extremities, but unable to do full neuro exam. No focal deficits noted. Skin: Warm and dry. Musculoskeletal: no deformities or deficits noted. DIFFERENTIAL DIAGNOSIS: After history and physical exam, differential diagnosis was considered for a patient with seizure, alcohol intoxication and altered mental status. Will look at the trauma and medical components of the seizure and altered mental status. ([facility]) Medical Decision Making Data Points Result Diagram: 12/17/17 1703 12/17/17 1703 Laboratory Hematology Test 12/17/17 17:03 12/17/17 18:08 Red Blood Count 4.77 M/uL (4.17-5.56) Mean Corpuscular Volume 100.2 fL (80.0-96.0) Mean Corpuscular Hemoglobin 35.5 pg (26.0-33.0) Mean Corpuscular Hemoglobin Concent 35.4 g/dL (32.0-36.0) Red Cell Distribution Width 15.2 % (11.5-14.5) Mean Platelet Volume 6.8 fL (7.2-11.1) Neutrophils (%) (Auto) 30.2 % (39.4-72.5) Lymphocytes (%) (Auto) 53.7 % (17.6-49.6) Monocytes (%) (Auto) 12.2 % (4.1-12.4) Eosinophils (%) (Auto) 1.5 % (0.4-6.7) Basophils (%) (Auto) 2.4 % (0.3-1.4) Nucleated RBC Relative Count (auto) 0.1 /100WBC Neutrophils # (Auto) 2.4 K/uL (2.0-7.4) Lymphocytes # (Auto) 4.2 K/uL (1.3-3.6) Monocytes # (Auto) 1.0 K/uL (0.3-1.0) Eosinophils # (Auto) 0.1 K/uL (0.0-0.5) Basophils # (Auto) 0.2 K/uL (0.0-0.1) Nucleated RBC Absolute Count (auto) 0.01 K/uL Peripheral Blood Smear Yes Y/N Prothrombin Time 12.4 seconds (12.0-14.4) Prothromb Time International Ratio 0.93 Activated Partial Thromboplast Time 28 seconds (23-35) Sodium Level 146 mmol/L (137-145) Potassium Level 3.8 mmol/L (3.5-5.0) Chloride Level 107 mmol/L (98-107) Carbon Dioxide Level 23 mmol/L (22-31) Blood Urea Nitrogen 6 mg/dl (7-18) Creatinine 0.50 mg/dl (0.52-1.04) Glomerular Filtration Rate Calc > 60.0 Random Glucose 112 mg/dl (75-110) Lactate 1.0 mmol/L (0.7-2.1) Calcium Level 9.8 mg/dl (8.4-10.2) Total Bilirubin 0.4 mg/dl (0.2-1.3) Aspartate Amino Transf (AST/SGOT) 73 U/L (0-35) Alanine Aminotransferase (ALT/SGPT) 73 U/L (0-56) Alkaline Phosphatase 149 U/L (0-126) Total Protein 7.8 gm/dl (6.3-8.2) Albumin 4.5 g/dl (3.5-5.0) Amylase Level 105 U/L (0-110) Lipase 385 U/L (23-300) Human Chorionic Gonadotropin, Qual Negative (NEGATIVE) Serum Alcohol 489 mg/dl Urine Color Colorless Urine Clarity Clear Urine pH 6.0 pH (4.8-9.5) Urine Specific Hancock 1.002 Urine Protein Negative mg/dL (NEGATIVE) Urine Glucose (UA) Negative mg/dL (NEGATIVE) Urine Ketones Negative mg/dL (NEGATIVE) Urine Blood Negative (NEGATIVE) Urine Nitrite Negative (NEGATIVE) Urine Bilirubin Negative (NEGATIVE) Urine Urobilinogen Negative mg/dL (0.2-1.9) Urine Leukocyte Esterase Negative (NEGATIVE) Urine RBC None /HPF (0-2/HPF) Urine WBC None /HPF (0-5/HPF) Urine Squamous Epithelial Cells Moderate /LPF (</=FEW) Urine Bacteria Negative /HPF (NONE-FEW) Urine Mucus None /HPF (NONE-FEW) Chemistry Test 12/17/17 17:03 12/17/17 18:08 White Blood Count 7.8 k/uL (4.5-11.0) Red Blood Count 4.77 M/uL (4.17-5.56) Hemoglobin 16.9 g/dL (12.0-16.0) Hematocrit 47.9 % (34.0-47.0) Mean Corpuscular Volume 100.2 fL (80.0-96.0) Mean Corpuscular Hemoglobin 35.5 pg (26.0-33.0) Mean Corpuscular Hemoglobin Concent 35.4 g/dL (32.0-36.0) Red Cell Distribution Width 15.2 % (11.5-14.5) Platelet Count 335 K/uL (150-450) Mean Platelet Volume 6.8 fL (7.2-11.1) Neutrophils (%) (Auto) 30.2 % (39.4-72.5) Lymphocytes (%) (Auto) 53.7 % (17.6-49.6) Monocytes (%) (Auto) 12.2 % (4.1-12.4) Eosinophils (%) (Auto) 1.5 % (0.4-6.7) Basophils (%) (Auto) 2.4 % (0.3-1.4) Nucleated RBC Relative Count (auto) 0.1 /100WBC Neutrophils # (Auto) 2.4 K/uL (2.0-7.4) Lymphocytes # (Auto) 4.2 K/uL (1.3-3.6) Monocytes # (Auto) 1.0 K/uL (0.3-1.0) Eosinophils # (Auto) 0.1 K/uL (0.0-0.5) Basophils # (Auto) 0.2 K/uL (0.0-0.1) Nucleated RBC Absolute Count (auto) 0.01 K/uL Peripheral Blood Smear Yes Y/N Prothrombin Time 12.4 seconds (12.0-14.4) Prothromb Time International Ratio 0.93 Activated Partial Thromboplast Time 28 seconds (23-35) Glomerular Filtration Rate Calc > 60.0 Lactate 1.0 mmol/L (0.7-2.1) Calcium Level 9.8 mg/dl (8.4-10.2) Total Bilirubin 0.4 mg/dl (0.2-1.3) Aspartate Amino Transf (AST/SGOT) 73 U/L (0-35) Alanine Aminotransferase (ALT/SGPT) 73 U/L (0-56) Alkaline Phosphatase 149 U/L (0-126) Total Protein 7.8 gm/dl (6.3-8.2) Albumin 4.5 g/dl (3.5-5.0) Amylase Level 105 U/L (0-110) Lipase 385 U/L (23-300) Human Chorionic Gonadotropin, Qual Negative (NEGATIVE) Serum Alcohol 489 mg/dl Urine Color Colorless Urine Clarity Clear Urine pH 6.0 pH (4.8-9.5) Urine Specific Hancock 1.002 Urine Protein Negative mg/dL (NEGATIVE) Urine Glucose (UA) Negative mg/dL (NEGATIVE) Urine Ketones Negative mg/dL (NEGATIVE) Urine Blood Negative (NEGATIVE) Urine Nitrite Negative (NEGATIVE) Urine Bilirubin Negative (NEGATIVE) Urine Urobilinogen Negative mg/dL (0.2-1.9) Urine Leukocyte Esterase Negative (NEGATIVE) Urine RBC None /HPF (0-2/HPF) Urine WBC None /HPF (0-5/HPF) Urine Squamous Epithelial Cells Moderate /LPF (</=FEW) Urine Bacteria Negative /HPF (NONE-FEW) Urine Mucus None /HPF (NONE-FEW) Coagulation Test 12/17/17 17:03 Prothrombin Time 12.4 seconds Prothromb Time International Ratio 0.93 Activated Partial Thromboplast Time 28 seconds Toxicology Test 12/17/17 17:03 Serum Alcohol 489 mg/dl Urinalysis Test 12/17/17 18:08 Urine Color Colorless Urine Clarity Clear Urine pH 6.0 pH (4.8-9.5) Urine Specific Hancock 1.002 Urine Protein Negative mg/dL (NEGATIVE) Urine Glucose (UA) Negative mg/dL (NEGATIVE) Urine Ketones Negative mg/dL (NEGATIVE) Urine Blood Negative (NEGATIVE) Urine Nitrite Negative (NEGATIVE) Urine Bilirubin Negative (NEGATIVE) Urine Urobilinogen Negative mg/dL (0.2-1.9) Urine Leukocyte Esterase Negative (NEGATIVE) Urine RBC None /HPF (0-2/HPF) Urine WBC None /HPF (0-5/HPF) Urine Squamous Epithelial Cells Moderate /LPF (</=FEW) Urine Bacteria Negative /HPF (NONE-FEW) Urine Mucus None /HPF (NONE-FEW) (AR SIDDIQI MD) EKG/Imaging EKG Interpretation 12 lead EKG: Rhythm: normal sinus rhythm, heart rate 87 [place]: normal QRS: normal ST segments: normal Imaging CT Head without contrast and CT Cervical spine: Indication: Fall. Altered mental status. Intoxicated. Comparison: 02/06/2017. Technique: CT head: Axial CT images were obtained through the brain from the skull base to the vertex without administration of IV contrast. Reformatted coronal and sagittal images were also obtained. Technique: CT cervical spine: Axial CT imaging of the cervical spine was performed. 2-D sagittal and coronal CT reformats were also obtained. One of the following dose optimization techniques was utilized in the performance of this exam: Automated exposure control; adjustment of the mA and/ or kV according to the patient's size; or use of an iterative reconstruction technique. Specific details can be referenced in the facility's radiology CT exam operational policy. FINDINGS: CT head: No intracranial bleed, midline shift, mass effect, extra-axial fluid collection or hydrocephalus. No abnormal density. Grimaldo/white matter differentiation appears normal. Mild bilateral internal carotid artery calcifications. Bony structures show no fractures or lesions. Previous right-sided craniectomy without sequelae. Sinuses and mastoids visualized are clear. CT cervical spine: The vertebral bodies are aligned. No fracture or facet dislocation. No bony lesions or degenerative changes. The endplates are maintained. No obvious disc herniation. Prevertebral soft tissues surrounding soft tissues are unremarkable. Lung apices are clear. IMPRESSION: 1. No acute intracranial abnormality. 2. No acute osseous or acute alignment abnormality of the cervical spine. Report Dictated By: Michael Fairbanks at 12/17/2017 6:03 PM CHEST/AB/PELV W/CONTRAST History: 52-year-old female fell on face. Intoxication noted. Change in mental status. Technique: Thin axial CT images were obtained through the chest, abdomen and pelvis with the injection of intravenous contrast. Coronal and sagittal reformations were then created. Contrast: Isovue-370 75 mls. One of the following dose optimization techniques was utilized in the performance of this exam: Automated exposure control; adjustment of the mA and/ or kV according to the patient's size; or use of an iterative reconstruction technique. Specific details can be referenced in the facility's radiology CT exam operational policy. Comparison: CT scan chest, abdomen and pelvis December. Findings: Chest: Lower neck: There are no findings of supraclavicular lymphadenopathy. Thyroid gland/mediastinum/hilum/lymph nodes:The thyroid gland is normal and there is no mediastinal or hilar lymphadenopathy. Heart and pericardium: Heart size is normal. There is no pericardial effusion. Lungs/pleura: There are diffuse findings of central lobar emphysema. Correlation for prior history of smoking recommended. Bones/soft tissues: There are no findings of a rib or thoracic vertebral body fracture. There is no clavicular or humeral head fracture. There is no scapular fracture. Abdomen and pelvis: Hepatobiliary: Diffuse decreased density of the liver is consistent with diffuse fatty infiltration or hepatic steatosis. Surgical clips in the gallbladder fossa are related to prior cholecystectomy. Spleen: There is no splenic fracture.. Adrenals: Negative. Pancreas: Negative. Kidneys/genitourinary: Negative. Bowel/peritoneum/mesentery: There are no dilated loops of large or small bowel to suggest ileus or obstruction. A normal appendix is identified. There is no diverticulosis or diverticulitis. Pelvic/genitourinary:The bladder is distended but otherwise unremarkable. There is no inguinal hernia. The uterus and ovaries are not seen. Correlation prior gynecological surgical history is recommended. Vessels: Negative. Lymph node: Negative. Body wall/bones: No finding of a fracture. IMPRESSION: 1. There are findings of central lobar emphysema throughout the chest. There is parenchymal scarring in the medial segment of the right middle lobe. This is stable since the prior exam. There is no rib fracture, sternal fracture or pleural effusion to suggest injury related to trauma. 2. In the abdomen there is hepatic steatosis. The gallbladder surgically absent. The bowel is unremarkable. 3. In the pelvis there is no fracture. Neither the uterus or ovaries are seen and correlation with prior surgical history is recommended. Report Dictated By: Edison Schwartz MD at 12/17/2017 7:56 PM T-SPINE W CONTRAST History: seizure, fall, altered mental status COMPARISON STUDIES: Patient with intoxication status post severe fall. Evaluate for fracture. TECHNIQUE: Axial images were obtained from the lower cervico-thoracic junction through the thoraco-lumbar junction without IV contrast administration. Coronal and sagittal reformatted images were obtained from the axial source data. Note that this thoracic spine series was a obtained as part of a reconstruction from original images obtained during a trauma study of the chest abdomen and pelvis. One of the following dose optimization techniques was utilized in the performance of this exam: Automated exposure control; adjustment of the mA and/ or kV according to the patient's size; or use of an iterative reconstruction technique. Specific details can be referenced in the facility's radiology CT exam operational policy. FINDINGS: Paravertebral soft tissues: No findings of a soft tissue hematoma. Alignment: The thoracic spine has normal gentle kyphosis. Vertebral bodies: There is no thoracic vertebral body fracture. There is no rib fracture. Posterior elements: There is no posterior element fracture. Disc Spaces: Unremarkable. Minimal discogenic degenerative change. Visualized lung / mediastinum / abdomen: There are changes of central lobar emphysema throughout the lung otto. The thoracic aorta is unremarkable. There is fatty infiltration of the liver. IMPRESSION: 1. No findings of fracture involving the thoracic spine or ribs. 2. Prominent findings of central lobar emphysema throughout the lung otto. 3. Fatty infiltration of the liver. Report Dictated By: Edison Schwartz MD at 12/17/2017 8:07 PM L-SPINE W CONTRAST HISTORY: seizure, fall, altered mental status COMPARISON STUDIES: Patient status post fall. Intoxication noted. Evaluate for fracture. TECHNIQUE: Axial images were obtained from the thoraco-lumbar junction through the upper sacrum without IV contrast administration. Coronal and sagittal reformatted images were obtained from the axial source data. One of the following dose optimization techniques was utilized in the performance of this exam: Automated exposure control; adjustment of the mA and/ or kV according to the patient's size; or use of an iterative reconstruction technique. Specific details can be referenced in the facility's radiology CT exam operational policy. FINDINGS: Paravertebral soft tissues: Unremarkable. No findings of prior surgery or injury related to recent trauma. Alignment: Lumbar spine is normal lordotic curvature. There is no spondylolisthesis or spondylolysis. Vertebral bodies: There is no vertebral body compression fracture. There is no sacral insufficiency fracture. Posterior elements: No findings of a posterior element fracture. No spondylolisthesis. Disc Spaces: Discogenic degenerative changes are noted at L5-S1 where there is a vacuum disc. Visualized retroperitoneal / abdominal structures: The aorta is calcified but there is no aneurysmal dilatation. There is no retroperitoneal hematoma. There is no transverse process fracture. IMPRESSION: 1. No findings of a fracture involving the lumbar spine or sacrum. 2. Discogenic degenerative changes in the lumbar spine are noted at L5-S1 where there is a vacuum disc. Report Dictated By: Edison Schwartz MD at 12/17/2017 8:05 PM ([facility]) ED Course/Re-evaluation Clinical Indication for ER IV: Hydration, IV Access ED Course Assumed care of this patient with Dr. Reagan at shift change. She did not see the patient but had CT scans done and labs started. I did the initial evaluation of the patient. Uncertain why she was altered. Had a fall with injury to the mouth area and bleeding. EMS had concern for possible seizure. She was given IV fluids. CT scans negative. She is more alert now. No complaints of pain on re- evaluation. No neurologic problems other than her alcohol. Discharged home in good condition. Decision to Disposition Date: December 17, 2017 Decision to Disposition Time: 20:44 (AR SIDDIQI MD) Depart Departure Latest Vital Signs Vital Signs Date Time Temp Pulse Resp B/P (MAP) Pulse Ox O2 Delivery O2 Flow Rate FiO2 12/17/17 20:45 22 84 12/17/17 20:30 88 101/77 (85) 12/17/17 17:19 Nasal Cannula 12/17/17 17:19 3.0 (AR SIDDIQI MD) Impression: Primary Impression: Alcohol intoxication Additional Impression: Fall Condition: Improved Disposition: HOME OR SELF-CARE Referrals: D[facility]UV ZHU (PCP) New Scripts Unable to Obtain Active Prescriptions or Reported Meds Patient Instructions: Alcohol Intoxication (ED) Additional Instructions: We suspect that you fell due to intoxication from alcohol. There was no damage seen on CT scans today. You will have some aches and pains from this for a few days and recommend use of over the counter Tylenol or Ibuprofen. We recommend getting set up with a primary care doctor for further evaluation. Problem Qualifiers Primary Impression: Alcohol intoxication Complication of substance-induced condition: uncomplicated Qualified Codes: F10.920 - Alcohol use, unspecified with intoxication, uncomplicated Additional Impression: Fall Encounter type: initial encounter Qualified Codes: W19.XXXA - Unspecified fall, initial encounter GERARD REAGAN MD December 17, 2017 17:24 AR SIDDIQI MD December 17, 2017 18:58 <Electronically signed by AR SIDDIQI MD> D/ 0203 D/T: D/T: 1724 172 BRID/TIM [id number]
== END 2017-12-17 21:15 | disposition home or self-care (01) ==
LOC: ER 17:25
DX: F10.920 Alcohol use, unspecified with intoxication, uncomplicated (principal); W18.30XA Fall on same level, unspecified, initial encounter; R41.82 Altered mental status, unspecified; J43.9 Emphysema, unspecified; K76.0 Fatty (change of) liver, not elsewhere classified
CPT/HCPCS: 36415; 70450; 71260; 72125; 72129; 72132; 74177; 81001; 82150; 83605; 83690; 84703; 85025; 85610; 85730; 90471; 90715; 93005; 96360; 96361; 99284; G0480; J7030; Q9967; 80320; 82040; 82247; 82310; 82374; 82435; 82565; 82947; 84075; 84132; 84155; 84295; 84450; 84460; 84520

== ENCOUNTER → 2017-12-17 | Outpatient (CLI) | payer MEDICARE, MEDICAID ==
[~2017-12-17] MED LIST changes: +NIC10R INH; +OXYGENHOME INH
== END ==
LOC: AMB 16:48
PROVIDERS: ATTEND Nurse Practitioner
DX: R55 Syncope and collapse (principal); R09.02 Hypoxemia; R41.0 Disorientation, unspecified; F10.20 Alcohol dependence, uncomplicated
CPT/HCPCS: A0425; A0427

== ENCOUNTER 2017-12-26 10:59 | Emergency (ER) | payer MEDICARE, MEDICAID ==
[~2017-12-26 10:59] MED LIST changes: -LORA-1456 PO
--- NOTE | 2017-12-26 11:10 | ER Report ---
History and Physical Time Seen By MD: 11:09 Hx. of Stated Complaint: FAMILY CALLED EMS BECAUSE SHE WAS INTOXICATED. "I DIDN'T WANT TO COME HERE." HPI/ROS CHIEF COMPLAINT: Alcohol intoxication HISTORY OF PRESENT ILLNESS: 52-year-old female patient presents to emergency room with complaint of alcohol intoxication. Patient states she drank a gallon of hard liquor this morning. She states that typically she will drink between one and 2 gallons of hard liquor a day. Patient states last time she had anything to eat was proximal 3 days ago. Patient states that her cousin came over to check on her and found her intoxicated and called EMS. Patient states she does not want to be here. Patient states that she would like to quit drinking, however she drinks to help with being lonely. She states that she has been drinking heavily for several years. She also states she smokes approximately one half packs of cigarettes a day. Patient states she feels fine would like to be discharged home. Patient states that she would like to not go to behavioral health. REVIEW OF SYSTEMS: Respiratory: No cough, no dyspnea. Cardiovascular: No chest pain, no palpitations. Gastrointestinal: No vomiting, no abdominal pain. Musculoskeletal: No back pain. Allergies: Coded Allergies: tomato (Verified Allergy, Intermediate, Rash, 12/11/17) Home Meds Unable to Obtain Active Prescriptions or Reported Meds Past Medical/Surgical History Patient has a past medical history of head injury, seizures, asthma, gallbladder disease, fracture, alcohol use, alcohol abuse, suicide attempt, ovarian cancer. Patient has surgical history of cholecystectomy, hysterectomy, brain surgery secondary to skull fracture. Reviewed Nurses Notes: Yes Hx Smoking: Yes Smoking Status: Current: Every Day Smoker Exposure to Second Hand Smoke?: No Hx Substance Use Disorder: No Hx Alcohol Use: Yes Constitutional Vital Sign - Last 24 Hours 12/26/17 12/26/17 12/26/17 12/26/17 11:00 11:00 11:30 12:00 Temp 98.4 Pulse 96 85 Resp 26 B/P (MAP) 122/99 122/99 (107) 123/88 (100) 118/86 (97) Pulse Ox 97 99 O2 Delivery Nasal Cannula 12/26/17 12/26/17 12/26/17 12:30 13:00 13:19 Pulse 91 83 B/P (MAP) 110/98 (102) 114/88 (97) 120/78 (92) Pulse Ox 96 99 Intake and Output 12/26/17 12/26/17 12/27/17 15:00 23:00 07:00 Intake Total 1015.2 ml Balance 1015.2 ml Physical Exam General Appearance: The patient is alert, has no immediate need for airway protection and no current signs of toxicity. Patient smells of alcohol and is slurring words. ENT: Tympanic membranes are pearly-kendrick, auditory canals are patent, mucous membranes are moist. Respiratory: Chest is non tender, lungs have inspiratory wheezes to auscultation. Cardiac: regular rate and rhythm Gastrointestinal: Abdomen is soft and non tender, no masses, bowel sounds normal. Musculoskeletal: Neck: Neck is supple and non tender. Extremities have full range of motion and are non tender. Skin: No rashes or lesions. DIFFERENTIAL DIAGNOSIS: After history and physical exam differential diagnosis was considered for alcohol abuse, depression, alcohol dependence. Medical Decision Making Data Points Result Diagram: 12/26/17 1103 12/26/17 1103 Laboratory Hematology Test 12/26/17 11:03 12/26/17 12:26 Red Blood Count 5.14 M/uL (4.17-5.56) Mean Corpuscular Volume 99.3 fL (80.0-96.0) Mean Corpuscular Hemoglobin 35.0 pg (26.0-33.0) Mean Corpuscular Hemoglobin Concent 35.2 g/dL (32.0-36.0) Red Cell Distribution Width 15.3 % (11.5-14.5) Mean Platelet Volume 7.2 fL (7.2-11.1) Neutrophils (%) (Auto) 33.4 % (39.4-72.5) Lymphocytes (%) (Auto) 53.2 % (17.6-49.6) Monocytes (%) (Auto) 10.0 % (4.1-12.4) Eosinophils (%) (Auto) 1.4 % (0.4-6.7) Basophils (%) (Auto) 2.0 % (0.3-1.4) Nucleated RBC Relative Count (auto) 0.1 /100WBC Neutrophils # (Auto) 2.5 K/uL (2.0-7.4) Lymphocytes # (Auto) 3.9 K/uL (1.3-3.6) Monocytes # (Auto) 0.7 K/uL (0.3-1.0) Eosinophils # (Auto) 0.1 K/uL (0.0-0.5) Basophils # (Auto) 0.2 K/uL (0.0-0.1) Nucleated RBC Absolute Count (auto) 0.01 K/uL Sodium Level 148 mmol/L (137-145) Potassium Level 3.9 mmol/L (3.5-5.0) Chloride Level 105 mmol/L (98-107) Carbon Dioxide Level 24 mmol/L (22-31) Blood Urea Nitrogen 7 mg/dl (7-18) Creatinine 0.50 mg/dl (0.52-1.04) Glomerular Filtration Rate Calc > 60.0 Random Glucose 103 mg/dl (75-110) Calcium Level 10.3 mg/dl (8.4-10.2) Magnesium Level 2.2 mg/dl (1.7-2.2) Total Bilirubin 0.5 mg/dl (0.2-1.3) Aspartate Amino Transf (AST/SGOT) 169 U/L (0-35) Alanine Aminotransferase (ALT/SGPT) 113 U/L (0-56) Alkaline Phosphatase 149 U/L (0-126) Total Protein 8.8 gm/dl (6.3-8.2) Albumin 4.8 g/dl (3.5-5.0) Thyroid Stimulating Hormone (TSH) 1.90 uIU/ml (0.46-4.68) Salicylates Level < 10 mg/L Salicylate Last Dose Date unk Acetaminophen Level < 10 ug/ml Serum Alcohol 414 mg/dl Urine Color Yellow Urine Clarity Clear Urine pH 5.0 pH (4.8-9.5) Urine Specific [place] 1.004 Urine Protein Negative mg/dL (NEGATIVE) Urine Glucose (UA) Negative mg/dL (NEGATIVE) Urine Ketones Negative mg/dL (NEGATIVE) Urine Blood Negative (NEGATIVE) Urine Nitrite Negative (NEGATIVE) Urine Bilirubin Negative (NEGATIVE) Urine Urobilinogen Negative mg/dL (0.2-1.9) Urine Leukocyte Esterase Negative (NEGATIVE) Urine RBC <1 /HPF (0-2/HPF) Urine WBC <1 /HPF (0-5/HPF) Urine Squamous Epithelial Cells Many /LPF (</=FEW) Urine Bacteria Negative /HPF (NONE-FEW) Urine Mucus None /HPF (NONE-FEW) Urine HCG, Qualitative Negative (NEGATIVE) Urine Opiates Screen Negative Urine Barbiturates Screen Negative Ur Tricyclic Antidepressants Screen Negative Urine Phencyclidine Screen Negative Urine Amphetamines Screen Negative Urine Benzodiazepines Screen Negative Urine Cocaine Screen Negative Urine Cannabinoids Screen Negative Chemistry Test 12/26/17 11:03 12/26/17 12:26 White Blood Count 7.4 k/uL (4.5-11.0) Red Blood Count 5.14 M/uL (4.17-5.56) Hemoglobin 18.0 g/dL (12.0-16.0) Hematocrit 51.1 % (34.0-47.0) Mean Corpuscular Volume 99.3 fL (80.0-96.0) Mean Corpuscular Hemoglobin 35.0 pg (26.0-33.0) Mean Corpuscular Hemoglobin Concent 35.2 g/dL (32.0-36.0) Red Cell Distribution Width 15.3 % (11.5-14.5) Platelet Count 334 K/uL (150-450) Mean Platelet Volume 7.2 fL (7.2-11.1) Neutrophils (%) (Auto) 33.4 % (39.4-72.5) Lymphocytes (%) (Auto) 53.2 % (17.6-49.6) Monocytes (%) (Auto) 10.0 % (4.1-12.4) Eosinophils (%) (Auto) 1.4 % (0.4-6.7) Basophils (%) (Auto) 2.0 % (0.3-1.4) Nucleated RBC Relative Count (auto) 0.1 /100WBC Neutrophils # (Auto) 2.5 K/uL (2.0-7.4) Lymphocytes # (Auto) 3.9 K/uL (1.3-3.6) Monocytes # (Auto) 0.7 K/uL (0.3-1.0) Eosinophils # (Auto) 0.1 K/uL (0.0-0.5) Basophils # (Auto) 0.2 K/uL (0.0-0.1) Nucleated RBC Absolute Count (auto) 0.01 K/uL Glomerular Filtration Rate Calc > 60.0 Calcium Level 10.3 mg/dl (8.4-10.2) Magnesium Level 2.2 mg/dl (1.7-2.2) Total Bilirubin 0.5 mg/dl (0.2-1.3) Aspartate Amino Transf (AST/SGOT) 169 U/L (0-35) Alanine Aminotransferase (ALT/SGPT) 113 U/L (0-56) Alkaline Phosphatase 149 U/L (0-126) Total Protein 8.8 gm/dl (6.3-8.2) Albumin 4.8 g/dl (3.5-5.0) Thyroid Stimulating Hormone (TSH) 1.90 uIU/ml (0.46-4.68) Salicylates Level < 10 mg/L Salicylate Last Dose Date unk Acetaminophen Level < 10 ug/ml Serum Alcohol 414 mg/dl Urine Color Yellow Urine Clarity Clear Urine pH 5.0 pH (4.8-9.5) Urine Specific [place] 1.004 Urine Protein Negative mg/dL (NEGATIVE) Urine Glucose (UA) Negative mg/dL (NEGATIVE) Urine Ketones Negative mg/dL (NEGATIVE) Urine Blood Negative (NEGATIVE) Urine Nitrite Negative (NEGATIVE) Urine Bilirubin Negative (NEGATIVE) Urine Urobilinogen Negative mg/dL (0.2-1.9) Urine Leukocyte Esterase Negative (NEGATIVE) Urine RBC <1 /HPF (0-2/HPF) Urine WBC <1 /HPF (0-5/HPF) Urine Squamous Epithelial Cells Many /LPF (</=FEW) Urine Bacteria Negative /HPF (NONE-FEW) Urine Mucus None /HPF (NONE-FEW) Urine HCG, Qualitative Negative (NEGATIVE) Urine Opiates Screen Negative Urine Barbiturates Screen Negative Ur Tricyclic Antidepressants Screen Negative Urine Phencyclidine Screen Negative Urine Amphetamines Screen Negative Urine Benzodiazepines Screen Negative Urine Cocaine Screen Negative Urine Cannabinoids Screen Negative Toxicology Test 12/26/17 11:03 12/26/17 12:26 Salicylates Level < 10 mg/L Salicylate Last Dose Date unk Acetaminophen Level < 10 ug/ml Serum Alcohol 414 mg/dl Urine Opiates Screen Negative Urine Barbiturates Screen Negative Ur Tricyclic Antidepressants Screen Negative Urine Phencyclidine Screen Negative Urine Amphetamines Screen Negative Urine Benzodiazepines Screen Negative Urine Cocaine Screen Negative Urine Cannabinoids Screen Negative Urinalysis Test 12/26/17 12:26 Urine Color Yellow Urine Clarity Clear Urine pH 5.0 pH (4.8-9.5) Urine Specific [place] 1.004 Urine Protein Negative mg/dL (NEGATIVE) Urine Glucose (UA) Negative mg/dL (NEGATIVE) Urine Ketones Negative mg/dL (NEGATIVE) Urine Blood Negative (NEGATIVE) Urine Nitrite Negative (NEGATIVE) Urine Bilirubin Negative (NEGATIVE) Urine Urobilinogen Negative mg/dL (0.2-1.9) Urine Leukocyte Esterase Negative (NEGATIVE) Urine RBC <1 /HPF (0-2/HPF) Urine WBC <1 /HPF (0-5/HPF) Urine Squamous Epithelial Cells Many /LPF (</=FEW) Urine Bacteria Negative /HPF (NONE-FEW) Urine Mucus None /HPF (NONE-FEW) Urine HCG, Qualitative Negative (NEGATIVE) ED Course/Re-evaluation ED Course Patient was admitted on exam room, history and physical were obtained. Differential diagnoses were considered. On examination patient was clearly intoxicated. She had a blood alcohol of 423. Patient states that EMS was called , however she feels fine. She denies any nausea, vomiting. She states she would like to go home. Patient had an IV started by EMS in route to the emergency room , the lab work for a behavioral health admission were done. Patient did have elevated liver enzymes, elevated MCV. I asked patient during my initial exam and she wanted to be admitted to behavior health. She refused at that time. I went and discussed lab results with patient and asked her to get her to undergo behavioral health. She again refused stating that she would like to go home. I do not see any concern with her going home. She was started getting anxious and I believe those likely the decrease her alcohol level. Patient is return to emergency room if condition worsens. I would like her to follow-up at the [facility] to get some counseling to quit drinking. Patient is not quit drinking cold [place]. I discussed the patient who verbalized understanding and agreement with plan. Decision to Disposition Date: December 26, 2017 Decision to Disposition Time: 13:14 Depart Departure Latest Vital Signs Vital Signs Date Time Temp Pulse Resp B/P (MAP) Pulse Ox O2 Delivery O2 Flow Rate FiO2 12/26/17 13:19 120/78 (92) 12/26/17 13:00 83 99 12/26/17 11:00 98.4 26 Nasal Cannula Impression: Primary Impression: Alcohol intoxication Additional Impression: COPD (chronic obstructive pulmonary disease) Condition: Improved Disposition: HOME OR SELF-CARE Referrals: DHRUV ZHU (PCP) New Scripts Unable to Obtain Active Prescriptions or Reported Meds Patient Instructions: Alcohol Intoxication (ED) Additional Instructions: Follow up with [facility] for counseling on quitting alcohol. Don't try and quit cold turkey, decrease alcohol consumption gradually. I would encourage you to have in-patient treatment of your alcoholism. Return to the ER if condition worsens. Follow up with a primary care provider this week for further evaluation. Problem Qualifiers Primary Impression: Alcohol intoxication Complication of substance-induced condition: uncomplicated Qualified Codes: F10.920 - Alcohol use, unspecified with intoxication, uncomplicated Additional Impression: COPD (chronic obstructive pulmonary disease) COPD type: unspecified COPD Qualified Codes: J44.9 - Chronic obstructive pulmonary disease, unspecified MANUELA PEREZ December 26, 2017 11:09
[2017-12-26] MEDS ORDERED: THIAMINE HCL(*) 200 MG/2 ML IN 100 MG, FOLIC ACID(*) 50 MG/10 ML INJ 1 MG, MULTIVITAMIN... IV ONE (11:18)
[2017-12-26 11:29] LABS: PLATELET COUNT, AUTOMATED 334 K/uL (150-450)
[2017-12-26 13:19] VITALS: BP 120/78
== END 2017-12-26 13:27 | disposition home or self-care (01) ==
LOC: ER 11:00
DX: F10.920 Alcohol use, unspecified with intoxication, uncomplicated (principal); J44.9 Chronic obstructive pulmonary disease, unspecified; Y90.8 Blood alcohol level of 240 mg/100 ml or more
CPT/HCPCS: 80305; 81001; 81025; 83735; 84443; 85025; 96365; 96366; 99284; G0480; J3411; J3475; J7030; 80320; 80329; 82040; 82247; 82310; 82374; 82435; 82565; 82947; 84075; 84132; 84155; 84295; 84450; 84460; 84520

== ENCOUNTER → 2017-12-26 | Outpatient (CLI) | payer MEDICARE, MEDICAID ==
[~2017-12-26] MED LIST changes: +LORA-1456 PO
== END ==
LOC: AMB 10:42
PROVIDERS: ATTEND Nurse Practitioner
DX: F10.229 Alcohol dependence with intoxication, unspecified (principal); R09.02 Hypoxemia
CPT/HCPCS: A0425; A0427

== ENCOUNTER → 2017-12-26 | Outpatient (CLI) | payer MEDICARE, MEDICAID | LOC: AMB 13:26 | PROVIDERS: ATTEND Nurse Practitioner | DX: J44.9 Chronic obstructive pulmonary disease, unspecified (principal); Z99.81 Dependence on supplemental oxygen | CPT/HCPCS: A0425; A0428 ==

== ENCOUNTER 2018-01-02 11:22 | Emergency (ER) | payer MEDICARE, MEDICAID ==
[~2018-01-02 11:22] MED LIST changes: -LORA-1456 PO
[2018-01-02] MEDS ORDERED: NS(*) 0.9% 1000 ML BAG 1,000 ML IV ONE (11:35)
[2018-01-02] MEDS ORDERED: ONDANSETRON 4 MG/2 ML VIAL IVP ONE (11:35)
[2018-01-02] MEDS ORDERED: ALBUTEROL/IPRATROPIUM 3 ML NEB NEB ONE (11:45)
[2018-01-02 11:52] LABS: PLATELET COUNT, AUTOMATED 344 K/uL (150-450)
--- NOTE | 2018-01-02 12:04 | EKG ---
FACILITY: [facility] [place] PATIENT NAME: GLORIA FIGUEROA : [id number] MR: [id number] V: [id number] EXAM DATE: ORDERING PHYSICIAN: MANUELA PEREZ TECHNOLOGIST: KURTIS Test Reason : SOB Blood Pressure : / mmHG Vent. Rate : 088 BPM Atrial Rate : 088 BPM P-R Int : 134 ms QRS Dur : 076 ms QT Int : 400 ms P-R-T Axes : 077 087 075 degrees QTc Int : 484 ms Normal sinus rhythm Prolonged QT No ST-T abnormalities, but baseline artifact in lateral limb leads make strict read difficult When compared with ECG of 17-DEC-2017 17:21, T wave inversion no longer evident in Anterior leads Confirmed by JERAD WRIGHT ([id number]) on 01/02/2018 2:44:26 PM Referred By: ANA Confirmed By:JERAD WRIGHT
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
[2018-01-02 12:30] VITALS: BP 121/83
--- NOTE | 2018-01-02 12:43 | RADIOLOGY IMAGING REPORT ---
FACILITY: [facility] - [place] PATIENT NAME: Agnieszka Nieves : 1965 MR: [id number] V: [id number] EXAM DATE: ORDERING PHYSICIAN: MANUELA PEREZ TECHNOLOGIST: Location: [facility] Patient: Agnieszka Nieves : 1965 Visit/Account:[id number] Date of Sevice: 01/02/2018 CHEST PA AND LAT COMPARISON: None. HISTORY: Respiratory distress with right shoulder pain FINDINGS: CARDIAC/VASC: No cardiac silhouette abnormality or cardiomegaly. Unremarkable pulmonary vasculatu re. MEDIASTINUM: No visible mass or adenopathy. LUNGS/PLEURA: No pneumothorax. No significant pulmonary parenchymal abnormalities. No effusion or p leural thickening. BONES: No fracture or visible bony lesion. OTHER:Negative. IMPRESSION: No acute cardiopulmonary process. Report Dictated By: Sean Williamson at 01/02/2018 12:38 PM Report E-Signed By: Sean Williamson at 01/02/2018 12:39 PM WSN:[id number]
[2018-01-02] MEDS ORDERED: LORA-1456 PO (19:50)
== END 2018-01-02 13:10 | disposition home or self-care (01) ==
LOC: ER 11:27
DX: R06.02 Shortness of breath (principal); F10.229 Alcohol dependence with intoxication, unspecified; F17.210 Nicotine dependence, cigarettes, uncomplicated; Y90.8 Blood alcohol level of 240 mg/100 ml or more
CPT/HCPCS: 71046; 83880; 84484; 85025; 94640; 96361; 96374; 99284; G0480; J2405; J7030; J7620; 80320; 82040; 82247; 82310; 82374; 82435; 82565; 82947; 84075; 84132; 84155; 84295; 84450; 84460; 84520

== ENCOUNTER 2018-01-02 18:21 | Emergency (ER) | payer MEDICARE, MEDICAID ==
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
[2018-01-02] MEDS ORDERED: NS 0.9% 25 ML BAG 0 ML ONE (18:54)
[2018-01-02] MEDS ORDERED: IOPAMIDOL 76% 75 ML INFUS BTL 75 ML ONE (18:54)
[2018-01-02] MEDS ORDERED: NS 0.9% 25 ML BAG 50 ML ONE (19:09)
--- NOTE | 2018-01-02 19:23 | RADIOLOGY IMAGING REPORT ---
FACILITY: [facility] PATIENT NAME: Agnieszka Nieves : 1965 MR: [id number] V: [id number] EXAM DATE: ORDERING PHYSICIAN: MANUELA PEREZ [place]CHNOLOGIST: [place] [facility] [place] Agnieszka Nieves : 1965 Visit/Account:[id number] Date of Sevice: 01/02/2018 EXAMINATION: CT CHEST PULMONARY ANGIOGRAM COMPARISON: Chest x-ray same day and earlier. Chest CT 12/17/2017. HISTORY: Shortness of breath. Back pain. PROCEDURE: Pulmonary arterial phase imaging of the chest with 75 mL intravenous Isovue 370. Reconstru ction of the source data set includes multiplanar 2D in the sagittal and coronal planes, and 3D recon structed coronal slab MIP series. One of the following dose optimization techniques was utilized in the performance of this exam: Autom ated exposure control; adjustment of the mA and/or kV according to the patient's size; or use of an i terative reconstruction technique. Specific details can be referenced in the facility's radiology C T exam operational policy. FINDINGS: Pulmonary vasculature: There is good contrast opacification of the pulmonary arterial system. No pul monary embolism. Main pulmonary artery size is normal. Cardiac and mediastinum: Cardiac chamber size is normal. No pericardial effusion. No thoracic aorti c aneurysm or dissection. No thoracic lymph node enlargement. Lungs and pleura: Right middle lobe medial segment scarring versus chronic volume loss. No consolidat ion or nodule. No pneumothorax, edema, or effusion. Airways: Negative. Upper abdomen: Hepatic steatosis. No acute findings. Osseous structures: Negative. IMPRESSION: 1. No pulmonary embolism or evidence of acute cardiopulmonary disease. 2. Hepatic steatosis. Report Dictated By: Shaun Mccray MD at 01/02/2018 7:12 PM Report E-Signed By: Shaun Mccray MD at 01/02/2018 7:19 PM WSN:[id number]
[2018-01-02] MEDS ORDERED: LORA-1456 PO (19:50)
[2018-01-02] MEDS ORDERED: LORazepam 1 MG TAB PO ONE (19:55)
[2018-01-02 20:00] VITALS: BP 115/75
== END 2018-01-02 20:37 | disposition home or self-care (01) ==
LOC: ER 18:37
DX: F10.10 Alcohol abuse, uncomplicated (principal)
CPT/HCPCS: 71275; 93005; 99284; A9270; G0480; Q9967; 80320

== ENCOUNTER → 2018-01-02 | Outpatient (CLI) | payer MEDICARE, MEDICAID ==
[~2018-01-02] MED LIST changes: +LORA-1456 PO
== END ==
LOC: AMB 20:29
PROVIDERS: ATTEND Nurse Practitioner
DX: R51 Headache (principal); F10.20 Alcohol dependence, uncomplicated; F17.210 Nicotine dependence, cigarettes, uncomplicated
CPT/HCPCS: A0425; A0428

== ENCOUNTER → 2018-01-02 | Outpatient (CLI) | payer MEDICARE, MEDICAID | LOC: AMB 18:10 | PROVIDERS: ATTEND Nurse Practitioner | DX: F10.229 Alcohol dependence with intoxication, unspecified (principal); R06.2 Wheezing | CPT/HCPCS: A0425; A0429 ==

== ENCOUNTER → 2018-01-02 | Outpatient (CLI) | payer MEDICARE, MEDICAID | LOC: AMB 13:05 | PROVIDERS: ATTEND Nurse Practitioner | DX: F10.229 Alcohol dependence with intoxication, unspecified (principal); Y90.8 Blood alcohol level of 240 mg/100 ml or more; Z99.81 Dependence on supplemental oxygen | CPT/HCPCS: A0425; A0428 ==

== ENCOUNTER → 2018-01-02 | Outpatient (CLI) | payer MEDICARE, MEDICAID | LOC: AMB 11:01 | PROVIDERS: ATTEND Nurse Practitioner | DX: R06.00 Dyspnea, unspecified (principal); R53.1 Weakness; R00.0 Tachycardia, unspecified; F10.229 Alcohol dependence with intoxication, unspecified | CPT/HCPCS: A0425; A0427 ==